=== PATIENT | male | born 1960 | race Caucasian/White ===

== ENCOUNTER 2023-04-08 11:06 | Day surgery (SDC) | payer BC ==
[~2023-04-08] VITALS: Ht 170.2 cm; Wt 99.1 kg
[2023-04-08 11:20] VITALS: BP 143/80
[2023-04-08] MEDS ORDERED: FOLI0.8T6 PO (11:31)
[2023-04-08] MEDS ORDERED: CYCL-1 PO (11:31)
[2023-04-08] MEDS ORDERED: ASPI-611 PO (11:31)
[2023-04-08] MEDS ORDERED: METO-395 PO (11:31)
[2023-04-08] MEDS ORDERED: ROSU10TA28 PO (11:31)
[2023-04-08 12:05] VITALS: BP 150/87
[2023-04-08 12:12] VITALS: BP 137/80
[2023-04-08 12:30] VITALS: BP 161/97
== END 2023-04-08 12:35 | disposition home or self-care (01) ==
LOC: SSTAY O 11:06
PROVIDERS: ATTEND Radiology Diagnostic Radiology
DX: E04.1 Nontoxic single thyroid nodule (principal); I10 Essential (primary) hypertension; E78.5 Hyperlipidemia, unspecified; Z79.82 Long term (current) use of aspirin; Z79.899 Other long term (current) drug therapy
CPT/HCPCS: 10005